=== PATIENT | female | born 1935 | race African-American/Black ===

== ENCOUNTER → 2019-01-13 | Outpatient (CLI) | payer MEDICARE, OTHER | END | disposition home or self-care (01) | LOC: LAB 11:47 | DX: J40 Bronchitis, not specified as acute or chronic (principal); M06.9 Rheumatoid arthritis, unspecified | CPT/HCPCS: 71046 ==

== ENCOUNTER 2019-02-17 11:14 | Inpatient (IN) | payer MEDICARE, OTHER ==
[2019-02-17 12:00] LABS: ADD MAN DIFF? NO
[2019-02-17] MEDS ORDERED: ACETAMINOPHEN 325 MG TAB PO (12:00)
[2019-02-17] MEDS ORDERED: ONDANSETRON 4 MG INJ IV (12:00)
[2019-02-17] MEDS: SOD CHLORIDE 0.9% 1,000 ML IV (12:06)
[2019-02-17] MEDS: ASPIRIN 325 MG TAB PO (12:06)
[2019-02-17 12:17] LABS: BASOPHIL # 0.2 10^3/ul (0.0-0.1); EOSINOPHILS # 0.5 10^3/ul (0.0-0.5); EOSINOPHILS % 7.2 % (0.0-7.0); HEMATOCRIT 43.9 % (37.0-47.0); HEMOGLOBIN 13.8 g/dl (12.0-16.0); LYMPHOCYTES # 3.6 10^3/ul (0.8-2.9); LYMPHOCYTES % 48.3 % (15.0-51.0); MEAN CORPUSCULAR HEMOGLOBIN 28.4 pg (29.0-33.0); MEAN CORPUSCULAR HGB CONC 31.4 g/dl (32.0-37.0); MEAN CORPUSCULAR VOLUME 90.3 fl (82.0-101.0); MEAN PLATELET VOLUME 10.5 fl (7.4-10.4); MONOCYTE # 0.5 10^3/ul (0.3-0.9); MONOCYTES % 7.2 % (0.0-11.0); NEUTROPHIL # 2.6 10^3/ul (1.6-7.5); NEUTROPHILS % 34.9 % (39.0-77.0); PLATELET COUNT 280 10^3/UL (140-415); RED BLOOD COUNT 4.86 10^6/ul (4.20-5.40); RED CELL DISTRIBUTION WIDTH 13.4 % (11.5-14.5)
[2019-02-17 12:17] LABS: WHITE BLOOD COUNT 7.4 10^3/ul (4.8-10.8)
[2019-02-17 12:19] LABS: ALANINE AMINOTRANSFERASE 9 IU/L (13-69); ALBUMIN 4.2 g/dl (3.3-4.9); ALKALINE PHOSPHATASE 161 IU/L (42-121); AMYLASE 99 U/L (11-123); ANION GAP 12 (5-13); ASPARTATE AMINO TRANSFERASE 45 IU/L (15-46); BILIRUBIN,INDIRECT 0.4 mg/dl (0-1.1); BILIRUBIN,TOTAL 0.4 mg/dl (0.2-1.3); BLOOD UREA NITROGEN 10 mg/dl (7-20); CARBON DIOXIDE 23 mmol/L (21-31); CHLORIDE 107 mmol/L (97-110); CREATININE 0.79 mg/dl (0.44-1.00); GLUCOSE 108 mg/dl (70-220); INR 1.05; LIPASE 70 U/L (23-300); POTASSIUM 4.3 mmol/L (3.5-5.1); PROTIME 13.8 Sec (11.9-14.9); PT RATIO 1.1; SODIUM 142 mmol/L (135-144); TOTAL PROTEIN 10.2 g/dl (6.1-8.1)
[2019-02-17 12:20] LABS: PARTIAL THROMBOPLASTIN TIME 36.4 Sec (23.0-35.0)
[2019-02-17 12:31] LABS: TROPONIN-I < 0.012 ng/ml (0.000-0.120)
[2019-02-17 12:35] LABS: B-TYPE NATRIURETIC PEPTIDE 371 PG/ML (0-450)
[2019-02-17 14:52] LABS: ADD UMIC YES; UR ASCORBIC ACID NEGATIVE (NEGATIVE); UR BILIRUBIN (Dip) NEGATIVE (NEGATIVE); UR BLOOD (Dip) NEGATIVE (NEGATIVE); UR CLARITY CLEAR (CLEAR); UR COLOR YELLOW (YELLOW); UR GLUCOSE (Dip) NEGATIVE (NEGATIVE); UR KETONES (Dip) TRACE mg/dL (NEGATIVE); UR LEUKOCYTE ESTERASE (Dip) TRACE Leu/ul (NEGATIVE); UR NITRITE (Dip) NEGATIVE (NEGATIVE); UR RBC 0 /HPF (0-5); UR TOTAL PROTEIN (Dip) NEGATIVE (NEGATIVE); UR UROBILINOGEN (Dip) NEGATIVE (NEGATIVE); UR WBC 3 /HPF (0-5)
[2019-02-17] MEDS ORDERED: NACL 0.9% 3 ML SYG IV ×2 (15:00)
[2019-02-17] MEDS ORDERED: DOCUSATE SODIUM 100 MG CAP PO (15:00)
[2019-02-17] MEDS ORDERED: PROMETHAZINE/CODEINE 5ML CUP PO (15:30)
[2019-02-17] MEDS: SOD CHLORIDE 0.45% 1,000 ML IV (15:42)
[2019-02-17] MEDS: CEFTRIAXONE 1 GM/50 ML (PMX) 50 ML IVPB (15:51)
[2019-02-17] MEDS: METHYLPREDNISOLONE 40 MG INJ IV ×2 (16:03→22:36)
[2019-02-17] MEDS: PROMETHAZINE (1.25 MG/ML) 5 ML CUP PO (17:00)
[2019-02-17] MEDS: AMLODIPINE 5 MG TAB PO (17:26)
[2019-02-17] MEDS: BARIUM SULF 2% 450 ML BTL (BERRY SMOOTHIE) PO (19:27)
[2019-02-17] MEDS: IOHEXOL 300MG/ML 150 ML BTL (23:02)
[2019-02-17] MEDS: SOD CHLORIDE 0.9% 100 ML (23:02)
[2019-02-17] MEDS: MIRTAZAPINE 15 MG TAB PO (23:45)
[2019-02-18] MEDS: PROMETHAZINE (1.25 MG/ML) 5 ML CUP PO ×3 (00:20→14:49)
[2019-02-18] MEDS: METHYLPREDNISOLONE 40 MG INJ IV ×2 (06:05→21:33)
[2019-02-18] MEDS: PANTOPRAZOLE (EC) 40 MG TAB PO (06:05)
[2019-02-18 06:56] LABS: ADD MAN DIFF? NO
[2019-02-18 07:00] LABS: WHITE BLOOD COUNT 5.3 10^3/ul (4.8-10.8)
[2019-02-18 07:00] LABS: HEMOGLOBIN 13.5 g/dl (12.0-16.0); LYMPHOCYTES % 41.2 % (15.0-51.0); MEAN CORPUSCULAR HEMOGLOBIN 28.1 pg (29.0-33.0); MEAN CORPUSCULAR HGB CONC 32.1 g/dl (32.0-37.0); MEAN CORPUSCULAR VOLUME 87.3 fl (82.0-101.0); MEAN PLATELET VOLUME 10.3 fl (7.4-10.4); MONOCYTES % 0.6 % (0.0-11.0); NEUTROPHILS % 56.1 % (39.0-77.0); PLATELET COUNT 282 10^3/UL (140-415); RED BLOOD COUNT 4.81 10^6/ul (4.20-5.40)
[2019-02-18 07:01] LABS: BASOPHIL # 0.1 10^3/ul (0.0-0.1); BASOPHILS % 1.3 % (0.0-2.0); EOSINOPHILS % 0.2 % (0.0-7.0); LYMPHOCYTES # 2.2 10^3/ul (0.8-2.9)
[2019-02-18 07:17] LABS: HEMOGLOBIN A1C 5.9 % (0-5.9)
[2019-02-18 07:27] LABS: ANION GAP 12 (5-13); BLOOD UREA NITROGEN 8 mg/dl (7-20); CALCIUM 8.3 mg/dl (8.4-10.2); CARBON DIOXIDE 22 mmol/L (21-31); CHLORIDE 106 mmol/L (97-110); GLUCOSE 211 mg/dl (70-220); MAGNESIUM 1.8 mg/dl (1.7-2.5); POTASSIUM 4.4 mmol/L (3.5-5.1); SODIUM 140 mmol/L (135-144)
[2019-02-18 07:52] LABS: THYROID STIMULATING HORMONE 0.645 MIU/L (0.465-4.680)
[2019-02-18] MEDS ORDERED: AMLODIPINE 5 MG TAB PO (09:00)
[2019-02-18] MEDS: AMLODIPINE 5 MG TAB PO (09:07)
[2019-02-18] MEDS: ENOXAPARIN 30 MG/0.3 ML SYG SC (09:35)
[2019-02-18] MEDS: SOD CHLORIDE 0.45% 1,000 ML IV (11:54)
[2019-02-18] MEDS: CEFTRIAXONE 1 GM/50 ML (PMX) 50 ML IVPB (14:49)
[2019-02-18] MEDS: MAGNESIUM SULFATE 2 GM/50 ML 50 ML IVPB (15:33)
[2019-02-18] MEDS: ACETAMINOPHEN 325 MG TAB PO (16:00)
[2019-02-18] MEDS: MIRTAZAPINE 15 MG TAB PO (22:08)
[2019-02-19] MEDS: SOD CHLORIDE 0.45% 1,000 ML IV (05:49)
[2019-02-19] MEDS: PANTOPRAZOLE (EC) 40 MG TAB PO (05:50)
[2019-02-19] MEDS: ACETAMINOPHEN 325 MG TAB PO (05:50)
[2019-02-19 06:57] LABS: ADD MAN DIFF? NO
[2019-02-19 07:06] LABS: BASOPHILS % 0.1 % (0.0-2.0); HEMATOCRIT 44.1 % (37.0-47.0); LYMPHOCYTES # 1.8 10^3/ul (0.8-2.9); LYMPHOCYTES % 12.8 % (15.0-51.0); MEAN CORPUSCULAR HEMOGLOBIN 28.5 pg (29.0-33.0); MEAN CORPUSCULAR HGB CONC 31.7 g/dl (32.0-37.0); MEAN CORPUSCULAR VOLUME 89.6 fl (82.0-101.0); MEAN PLATELET VOLUME 10.9 fl (7.4-10.4); MONOCYTE # 0.2 10^3/ul (0.3-0.9); MONOCYTES % 1.6 % (0.0-11.0); NEUTROPHIL # 11.8 10^3/ul (1.6-7.5); NEUTROPHILS % 84.9 % (39.0-77.0); PLATELET COUNT 259 10^3/UL (140-415); RED BLOOD COUNT 4.92 10^6/ul (4.20-5.40); RED CELL DISTRIBUTION WIDTH 13.3 % (11.5-14.5)
[2019-02-19 07:06] LABS: WHITE BLOOD COUNT 13.8 10^3/ul (4.8-10.8)
[2019-02-19 07:34] LABS: ANION GAP 10 (5-13); BLOOD UREA NITROGEN 13 mg/dl (7-20); CALCIUM 8.4 mg/dl (8.4-10.2); CARBON DIOXIDE 25 mmol/L (21-31); CHLORIDE 105 mmol/L (97-110); CREATININE 0.63 mg/dl (0.44-1.00); GLUCOSE 232 mg/dl (70-220); MAGNESIUM 2.7 mg/dl (1.7-2.5); PHOSPHORUS 2.3 mg/dl (2.5-4.9); POTASSIUM 4.5 mmol/L (3.5-5.1); SODIUM 140 mmol/L (135-144)
[2019-02-19 07:50] LABS: T4 (THYROXINE) 8.6 ug/dl (5.5-11.0)
[2019-02-19 08:04] LABS: THYROID STIMULATING HORMONE 0.523 MIU/L (0.465-4.680)
[2019-02-19] MEDS: METHYLPREDNISOLONE 40 MG INJ IV ×2 (08:39→20:58)
[2019-02-19] MEDS: AMLODIPINE 5 MG TAB PO (08:39)
[2019-02-19] MEDS: ENOXAPARIN 30 MG/0.3 ML SYG SC (08:45)
[2019-02-19] MEDS: CEFTRIAXONE 1 GM/50 ML (PMX) 50 ML IVPB (15:15)
[2019-02-19] MEDS: PROMETHAZINE (1.25 MG/ML) 5 ML CUP PO ×2 (15:15→23:20)
[2019-02-19 20:22] LABS: RHEUMATOID FACTOR NEGATIVE (NEGATIVE)
[2019-02-19] MEDS: ONDANSETRON 4 MG TAB PO (20:58)
[2019-02-19] MEDS: MIRTAZAPINE 15 MG TAB PO (23:20)
[2019-02-20 06:34] LABS: ADD MAN DIFF? NO
[2019-02-20] MEDS: PANTOPRAZOLE (EC) 40 MG TAB PO (06:38)
[2019-02-20] MEDS: SOD CHLORIDE 0.45% 1,000 ML IV (06:38)
[2019-02-20 06:42] LABS: BASOPHILS % 0.1 % (0.0-2.0); HEMATOCRIT 39.9 % (37.0-47.0); HEMOGLOBIN 12.9 g/dl (12.0-16.0); LYMPHOCYTES # 1.6 10^3/ul (0.8-2.9); MEAN CORPUSCULAR HEMOGLOBIN 28.6 pg (29.0-33.0); MEAN CORPUSCULAR HGB CONC 32.3 g/dl (32.0-37.0); MEAN CORPUSCULAR VOLUME 88.5 fl (82.0-101.0); MONOCYTE # 0.4 10^3/ul (0.3-0.9); MONOCYTES % 2.8 % (0.0-11.0); NEUTROPHIL # 12.3 10^3/ul (1.6-7.5); NEUTROPHILS % 85.5 % (39.0-77.0); PLATELET COUNT 255 10^3/UL (140-415); RED BLOOD COUNT 4.51 10^6/ul (4.20-5.40); RED CELL DISTRIBUTION WIDTH 13.2 % (11.5-14.5)
[2019-02-20 06:42] LABS: WHITE BLOOD COUNT 14.4 10^3/ul (4.8-10.8)
[2019-02-20 07:24] LABS: ANION GAP 10 (5-13); BLOOD UREA NITROGEN 17 mg/dl (7-20); CALCIUM 8.3 mg/dl (8.4-10.2); CARBON DIOXIDE 23 mmol/L (21-31); CHLORIDE 103 mmol/L (97-110); GLUCOSE 285 mg/dl (70-220); MAGNESIUM 2.3 mg/dl (1.7-2.5); SODIUM 136 mmol/L (135-144)
[2019-02-20] MEDS: ACETAMINOPHEN 325 MG TAB PO ×2 (07:45→23:38)
[2019-02-20] MEDS: AMLODIPINE 5 MG TAB PO (08:40)
[2019-02-20] MEDS: METHYLPREDNISOLONE 40 MG INJ IV (08:40)
[2019-02-20] MEDS: ENOXAPARIN 30 MG/0.3 ML SYG SC (08:44)
[2019-02-20] MEDS ORDERED: GLUCOSE GEL 15 GRAM TUBE BUCCAL (12:00)
[2019-02-20] MEDS ORDERED: DEXTROSE 50% 50 ML SYRINGE IV ×2 (12:00)
[2019-02-20] MEDS ORDERED: GLUCOSE GEL 15 GRAM TUBE PO ×2 (12:00)
[2019-02-20] MEDS ORDERED: GLUCAGON 1 MG INJ IM (12:00)
[2019-02-20 13:26] LABS: PROTEIN, TOTAL 8.9 g/dL (6.1-8.1)
[2019-02-20] MEDS: predniSONE 10 MG TAB PO (13:39)
[2019-02-20] MEDS: INSULIN ASPART [NOVOLOG] 3 ML PEN SC ×3 (13:48→20:20)
[2019-02-20] MEDS: CEFTRIAXONE 1 GM/50 ML (PMX) 50 ML IVPB (14:33)
[2019-02-20] MEDS: PROMETHAZINE (1.25 MG/ML) 5 ML CUP PO (17:15)
[2019-02-20] MEDS: MIRTAZAPINE 15 MG TAB PO (20:11)
[2019-02-21] MEDS: PANTOPRAZOLE (EC) 40 MG TAB PO (05:29)
[2019-02-21] MEDS: INSULIN ASPART [NOVOLOG] 3 ML PEN SC ×4 (07:59→20:02)
[2019-02-21] MEDS: AMLODIPINE 5 MG TAB PO (08:00)
[2019-02-21] MEDS: predniSONE 10 MG TAB PO (08:00)
[2019-02-21] MEDS: ENOXAPARIN 30 MG/0.3 ML SYG SC (08:03)
[2019-02-21] MEDS: CEFTRIAXONE 1 GM/50 ML (PMX) 50 ML IVPB (14:44)
[2019-02-21 18:26] LABS: ANA SCREEN POSITIVE (NEGATIVE)
[2019-02-21] MEDS: ACETAMINOPHEN 325 MG TAB PO (20:02)
[2019-02-21] MEDS: MIRTAZAPINE 15 MG TAB PO (20:02)
[2019-02-21 20:03] LABS: ANA PATTERN SPECKLED
[2019-02-21 23:13] LABS: ALBUMIN 3.6 g/dL (3.8-4.8); ALPHA-1-GLOBULINS 0.4 g/dL (0.2-0.3); BETA 2 GLOBULINS 0.7 g/dL (0.2-0.5); BETA GLOBULINS 0.5 g/dL (0.4-0.6); GAMMA GLOBULINS 2.8 g/dL (0.8-1.7)
[2019-02-22] MEDS: PANTOPRAZOLE (EC) 40 MG TAB PO (04:45)
[2019-02-22] MEDS: INSULIN ASPART [NOVOLOG] 3 ML PEN SC ×4 (07:55→20:52)
[2019-02-22] MEDS: AMLODIPINE 5 MG TAB PO (08:06)
[2019-02-22] MEDS: predniSONE 10 MG TAB PO (08:06)
[2019-02-22] MEDS: ENOXAPARIN 30 MG/0.3 ML SYG SC (08:11)
[2019-02-22] MEDS: CEFTRIAXONE 1 GM/50 ML (PMX) 50 ML IVPB (15:55)
[2019-02-22] MEDS: ACETAMINOPHEN 325 MG TAB PO (20:50)
[2019-02-22] MEDS: MIRTAZAPINE 15 MG TAB PO (21:56)
[2019-02-23] MEDS: PANTOPRAZOLE (EC) 40 MG TAB PO (05:17)
[2019-02-23] MEDS: INSULIN ASPART [NOVOLOG] 3 ML PEN SC ×2 (08:00→12:16)
[2019-02-23] MEDS: predniSONE 10 MG TAB PO (09:24)
[2019-02-23] MEDS: AMLODIPINE 5 MG TAB PO (09:24)
[2019-02-23] MEDS: ENOXAPARIN 30 MG/0.3 ML SYG SC (09:26)
[2019-02-23] MEDS: ACETAMINOPHEN 325 MG TAB PO (10:58)
[2019-02-23] MEDS: CEFTRIAXONE 1 GM/50 ML (PMX) 50 ML IVPB (15:00)
[2019-02-24 19:22] LABS: CYCLIC CITRULLINATED PEP IGG <16 UNITS
[2019-02-25 14:07] LABS: ANTI-DNA (DOUBLE STRANDED) <95 U/mL (< 301)
== END 2019-02-23 16:05 | disposition home or self-care (01) | DRG 197 ==
LOC: 2NE 02-22 17:20 → E/R 11:14 → TEL 11:48
DX: M05.19 Rheumatoid lung disease with rheumatoid arthritis of multiple sites (principal); Z68.1 Body mass index [BMI] 19.9 or less, adult; N39.0 Urinary tract infection, site not specified; J84.9 Interstitial pulmonary disease, unspecified; E11.9 Type 2 diabetes mellitus without complications; I73.9 Peripheral vascular disease, unspecified; I10 Essential (primary) hypertension; B96.20 Unspecified Escherichia coli [E. coli] as the cause of diseases classified elsewhere; R63.4 Abnormal weight loss; J45.909 Unspecified asthma, uncomplicated; K80.20 Calculus of gallbladder without cholecystitis without obstruction; R77.1 Abnormality of globulin; J20.9 Acute bronchitis, unspecified; Z79.4 Long term (current) use of insulin; Z89.512 Acquired absence of left leg below knee
CPT/HCPCS: 71045; 71260; 74177; 76856; 80048; 80053; 81001; 82150; 82962; 83036; 83690; 83735; 83880; 84100; 84155; 84165; 84436; 84443; 84484; 85025; 85610; 85730; 86038; 86200; 86226; 86304; 86430; 87040-91; 87086; 93005; 97116; 97161; 97530; 99285-25; G0378

== ENCOUNTER 2019-03-01 12:50 | Emergency (ER) | payer MEDICARE, OTHER ==
[2019-03-01 15:11] LABS: ADD MAN DIFF? NO
[2019-03-01 15:13] LABS: BASOPHIL # 0.1 10^3/ul (0.0-0.1); BASOPHILS % 1.1 % (0.0-2.0); EOSINOPHILS # 0.3 10^3/ul (0.0-0.5); EOSINOPHILS % 2.7 % (0.0-7.0); HEMATOCRIT 43.2 % (37.0-47.0); HEMOGLOBIN 13.6 g/dl (12.0-16.0); LYMPHOCYTES # 1.9 10^3/ul (0.8-2.9); LYMPHOCYTES % 16.9 % (15.0-51.0); MEAN CORPUSCULAR HEMOGLOBIN 28.7 pg (29.0-33.0); MEAN CORPUSCULAR HGB CONC 31.5 g/dl (32.0-37.0); MEAN CORPUSCULAR VOLUME 91.1 fl (82.0-101.0); MEAN PLATELET VOLUME 10.6 fl (7.4-10.4); MONOCYTE # 0.6 10^3/ul (0.3-0.9); NEUTROPHIL # 8.2 10^3/ul (1.6-7.5); NEUTROPHILS % 72.4 % (39.0-77.0); PLATELET COUNT 214 10^3/UL (140-415); RED BLOOD COUNT 4.74 10^6/ul (4.20-5.40); RED CELL DISTRIBUTION WIDTH 14.2 % (11.5-14.5)
[2019-03-01 15:13] LABS: WHITE BLOOD COUNT 11.3 10^3/ul (4.8-10.8)
[2019-03-01 15:37] LABS: ALANINE AMINOTRANSFERASE 111 IU/L (13-69); ALBUMIN 4.1 g/dl (3.3-4.9); ALKALINE PHOSPHATASE 182 IU/L (42-121); ANION GAP 8 (5-13); ASPARTATE AMINO TRANSFERASE 144 IU/L (15-46); BILIRUBIN,INDIRECT 0.6 mg/dl (0-1.1); BILIRUBIN,TOTAL 0.6 mg/dl (0.2-1.3); BLOOD UREA NITROGEN 12 mg/dl (7-20); CARBON DIOXIDE 30 mmol/L (21-31); CHLORIDE 100 mmol/L (97-110); CREATININE 0.67 mg/dl (0.44-1.00); GLUCOSE 178 mg/dl (70-220); LIPASE 73 U/L (23-300); POTASSIUM 4.6 mmol/L (3.5-5.1); SODIUM 138 mmol/L (135-144); TOTAL PROTEIN 8.2 g/dl (6.1-8.1)
[2019-03-01 15:49] LABS: TROPONIN-I < 0.012 ng/ml (0.000-0.120)
[2019-03-01] MEDS: ONDANSETRON 4 MG INJ IV (16:12)
[2019-03-01] MEDS: morphine 4 MG/ML VIAL IV (16:12)
[2019-03-01] MEDS: SOD CHLORIDE 0.9% 500 ML IV (16:12)
[2019-03-01 17:37] LABS: ADD UMIC NO; UR ASCORBIC ACID NEGATIVE (NEGATIVE); UR BILIRUBIN (Dip) NEGATIVE (NEGATIVE); UR BLOOD (Dip) NEGATIVE (NEGATIVE); UR CLARITY CLEAR (CLEAR); UR COLOR YELLOW (YELLOW); UR GLUCOSE (Dip) NEGATIVE (NEGATIVE); UR KETONES (Dip) NEGATIVE (NEGATIVE); UR LEUKOCYTE ESTERASE (Dip) NEGATIVE Leu/ul (NEGATIVE); UR NITRITE (Dip) NEGATIVE (NEGATIVE); UR SPECIFIC GRAVITY (Dip) 1.009 (1.003-1.030); UR TOTAL PROTEIN (Dip) NEGATIVE (NEGATIVE); UR UROBILINOGEN (Dip) NEGATIVE (NEGATIVE)
== END 2019-03-01 18:15 | disposition home or self-care (01) ==
LOC: E/R 18:15
DX: K59.00 Constipation, unspecified (principal); I10 Essential (primary) hypertension; R40.2142 Coma scale, eyes open, spontaneous, at arrival to emergency department; R40.2252 Coma scale, best verbal response, oriented, at arrival to emergency department; R40.2362 Coma scale, best motor response, obeys commands, at arrival to emergency department
CPT/HCPCS: 74176; 80053; 81003; 83690; 84484; 85025; 96374; 96375; 99285-25